=== PATIENT | male | born 1970 | race Caucasian/White ===

== ENCOUNTER 2017-07-24 18:37 | Inpatient (IN) | payer OTHER ==
[2017-07-24 20:56] VITALS: BMI 31.1
--- NOTE | 2017-07-24 21:47 | HP ---
CIWA Score - CIWA Score Nausea/Vomitin Muscle Tremors: 4-Moderate,w/Arms Extend Anxiety: 4-Mod. Anxious/Guarded Agitation: 4-Moderately Restless Paroxysmal Sweats: 4-Forehead w/Sweat Beads Orientation: 2-Disoriented Date<2 days Tacttile Disturbances: 3-Moderate Itch/Numb/Burn Auditory Disturbances: 0-None Visual Disturbances: 3-Moderate Sensitivity Headache: 3-Moderate CIWA-Ar Total Score: 30 Admission ROS BHS - HPI Chief Complaint: C/O ETOH AND BENZO DEPENDENCE. SEEKING DETOX TXMENT Allergies/Adverse Reactions: Allergies Allergy/AdvReac Type Severity Reaction Status Date / Time No Known Allergies Allergy Verified 07/24/17 21:39 History of Present Illness: 47 Y.O. MALE WITH EXTENSIVE HX/O POLY SUBSTANCE ABUSE ADMITTED TO DETOX FOR ALCOHOLISM AND XANAX DEPENDENCE. HE IS CURRENTLY ON MMTP FROM [facility] TODAY [place] 60 MG. REFERRED BY HIS GROUP HOME. DENIES ANY SIGNIFICANT PERIOD OF CLEAN TIME. Exam Limitations: Language Barrier (CZECH SPEAKING. ABLE TO MAKE NEEDS KNOWN IN [place]) - Ebola screening Have you traveled outside of the country in the last 21 days: No Have you had contact with anyone from an Ebola affected area: No Have you been sick,other than usual withdrawal symptoms: No Do you have a fever: No - Review of Systems Constitutional: Chills, Loss of Appetite, Malaise, Night Sweats EENT: reports: Nose Congestion, Dental Problems (MISSING TEETH) Respiratory: reports: No Symptoms reported Cardiac: reports: Palpitations GI: reports: Abdominal cramping : reports: Frequency Musculoskeletal: reports: Back Pain, Joint Pain Integumentary: reports: Erythema (R NFOOT GREATER THAN LEFT FOOT), Sweating Neuro: reports: Seizure Endocrine: reports: No Symptoms Reported Hematology: reports: No Symptoms Reported Psychiatric: reports: Anxious, Depressed Other Systems: Reviewed and Negative Patient History - Patient Medical History Hx Anemia: No Hx Asthma: Yes Hx Chronic Obstructive Pulmonary Disease (COPD): No Hx Cancer: No Hx Cardiac Disorders: No Hx Congestive Heart Failure: No Hx Hypertension: No Hx Hypercholesterolemia: No Hx Pacemaker: No HX Cerebrovascular Accident: No Hx Seizures: No Hx Dementia: No Hx Diabetes: No Hx Gastrointestinal Disorders: Yes (stomach ulcer) Hx Liver Disease: No Hx Genitourinary Disorders: No Hx Sexually Transmitted Disorders: No Hx Renal Disease (ESRD): No Hx Thyroid Disease: No Hx Human Immunodeficiency Virus (HIV): No Hx Hepatitis C: Yes Hx Depression: No (anxiety ) Hx Suicide Attempt: No Hx Bipolar Disorder: No Hx Schizophrenia: No Other Medical History: DENIES - Patient Surgical History Past Surgical History: Yes Hx Neurologic Surgery: No Hx Cataract Extraction: No Hx Cardiac Surgery: No Hx Lung Surgery: No Hx Breast Surgery: No Hx Breast Biopsy: No Hx Abdominal Surgery: No Hx Appendectomy: No Hx Cholecystectomy: No Hx Genitourinary Surgery: No Hx Section: No Hx Orthopedic Surgery: Yes (right shoulder in 2010) Anesthesia Reaction: No - PPD History Previous Implant?: Yes Documented Results: Negative w/proof Implanted On Prior R Admission?: Yes Date: 07/19/16 PPD to be Administered?: Yes - Smoking Cessation Smoking history: Current every day smoker Have you smoked in the past 12 months: Yes Aproximately how many cigarettes per day: 20 Cigars Per Day: 0 Hx Chewing Tobacco Use: No Initiated information on smoking cessation: Yes 'Breaking Loose' booklet given: 07/24/17 - Substance & Tx. History Hx Alcohol Use: Yes Hx Substance Use: Yes Substance Use Type: Alcohol, Cocaine, Heroin, Tranquilizers (XANAX) Hx Substance Use Treatment: Yes ([facility]) - Substances Abused ALISA/ BEER Route: Oral Frequency: Daily Amount used: 1PINT/ 8BEERS 24 OZ Age of first use: 14 Date of Last Use: 07/24/17 COCAINE Route: Injection Frequency: Daily Amount used: 10 BAGS Age of first use: 18 Date of Last Use: 07/23/17 XANAX Route: Oral Frequency: Daily Amount used: 12MG Age of first use: 27 Date of Last Use: 07/23/17 Family Disease History - Family Disease History Family Disease History: Diabetes: Grandparent, Father (htn), Other: Father Admission Physical Exam BHS - Vital Signs Vital Signs: Vital Signs - 24 hr 07/24/17 20:52 Temperature 96.9 F L Pulse Rate 80 Respiratory 18 Rate Blood Pressure 130/100 - Physical General Appearance: Yes: Disheveled, Mild Distress, Tremorous, Sweating HEENTM: Yes: EOMI, Normocephalic, DEVON, Pharynx Normal Respiratory: Yes: Chest Non-Tender, Lungs Clear, Normal Breath Sounds, No Respiratory Distress, No Accessory Muscle Use Neck: Yes: No masses,lesions,Nodules, Supple, Trachea in good position Breast: Yes: Breast Exam Deferred Cardiology: Yes: Regular Rhythm, Regular Rate, S1, S2 Abdominal: Yes: Normal Bowel Sounds, Non Tender, Protuberent Genitourinary: Yes: Within Normal Limits Back: Yes: Normal Inspection Musculoskeletal: Yes: Gait Steady Extremities: Yes: Normal Range of Motion, Non-Tender, Tremors Neurological: Yes: Alert, Motor Strength 5/5 Integumentary: Yes: Erythema (R FOOT CELLULITS. RED, WARM, SWOLLEN, INJECTION HOLLIDAY NOTED) Lymphatic: Yes: Within Normal Limits - Diagnostic (1) Alcohol dependence with uncomplicated withdrawal Current Visit: No Status: Chronic (2) Cocaine dependence Current Visit: No Status: Chronic Qualifiers: Substance use status: uncomplicated Qualified Code(s): F14.20 - Cocaine dependence, uncomplicated; F14.20 - Cocaine dependence, uncomplicated; F14.20 - Cocaine dependence, uncomplicated (3) Sedative, hypnotic or anxiolytic dependence with withdrawal, uncomplicated Current Visit: No Status: Chronic (4) Methadone maintenance therapy patient Current Visit: No Status: Chronic (5) Nicotine dependence Current Visit: No Status: Chronic Qualifiers: Nicotine product type: cigarettes Substance use status: uncomplicated Qualified Code(s): F17.210 - Nicotine dependence, cigarettes, uncomplicated; F17.210 - Nicotine dependence, cigarettes, uncomplicated (6) Asthma Current Visit: Yes Status: Chronic Qualifiers: Asthma severity: mild Asthma persistence: intermittent Asthma complication type: uncomplicated Qualified Code(s): J45.20 - Mild intermittent asthma, uncomplicated; J45.20 - Mild intermittent asthma, uncomplicated; J45.20 - Mild intermittent asthma, uncomplicated (7) GERD (gastroesophageal reflux disease) Current Visit: Yes Status: Chronic (8) Cellulitis of right foot Current Visit: Yes Status: Acute Cleared for Admission S - Detox or Rehab [facility] Level of Care: Medically Managed Detox Regimen/Protocol: Librium [facility] Breath Alcohol Content Breath Alcohol Content: 0 Urine Drug Screen - Results Drug Screen Negative: No Urine Drug Screen Results: JACKI-Cocaine, OPI-Opiates, BZO-Benzodiazepines, MTD- Methadone
[2017-07-24] MEDS ORDERED: MAG HYDROX/AL HYDROX/SIMETH 30 ML UNIT-DOSE CUP PO PRN (22:09)
[2017-07-24] MEDS ORDERED: MAGNESIUM CITRATE 300 ML BOTTLE PO PRN (22:09)
[2017-07-24] MEDS ORDERED: chlordiazePOXIDE HCL 25 MG CAPSULE PO PRN (22:09)
[2017-07-24] MEDS ORDERED: ACETAMINOPHEN 325 MG TABLET (FP) PO PRN (22:09)
[2017-07-24] MEDS ORDERED: MENTHOL/PHENOL 1 EACH UD MM PRN (22:09)
[2017-07-24] MEDS ORDERED: P-EPHED 60MG/TRIPROLIDI 2.5MG TABLET PO PRN (22:09)
[2017-07-24] MEDS ORDERED: IBUPROFEN 400 MG TABLET (FP) PO PRN (22:09)
[2017-07-24] MEDS ORDERED: hydrOXYzine PAMOATE 50 MG CAPSULE (FP) PO PRN (22:09)
[2017-07-24] MEDS ORDERED: guaiFENesin/D-METHORPHAN HB 10 ML UNIT-DOSE CUPS PO PRN (22:09)
[2017-07-24] MEDS ORDERED: diphenhydrAMINE HCL 50 MG CAPSULE PO PRN (22:09)
[2017-07-24] MEDS ORDERED: NICOTINE POLACRILEX 2 MG GUM BC PRN (22:09)
[2017-07-24] MEDS ORDERED: MAGNESIUM HYDROX 2400MG/30ML ORAL SUSPENSION 30 ML CUP PO PRN (22:09)
[2017-07-24] MEDS: AMOX TR/POT CLAV 875MG/125MG TABLETS (FP) PO SCH (23:22)
[2017-07-24] MEDS: chlordiazePOXIDE HCL 25 MG CAPSULE PO SCH (23:22)
[2017-07-25 01:17] LABS: URINE APPEARANCE TURBID; URINE BLOOD NEGATIVE (NEGATIVE); URINE COLOR YELLOW; URINE GLUCOSE (UA) NEGATIVE (NEGATIVE); URINE KETONE NEGATIVE (NEGATIVE); URINE NITRITE NEGATIVE (NEGATIVE); URINE PROTEIN NEGATIVE (NEGATIVE); URINE UROBILINOGEN 4.0 E.U/dl mg/dL (0.2-1.0)
[2017-07-25] MEDS: chlordiazePOXIDE HCL 25 MG CAPSULE PO SCH ×4 (06:00→22:46)
[2017-07-25] MEDS: AMOX TR/POT CLAV 875MG/125MG TABLETS (FP) PO SCH ×3 (07:56→20:21)
[2017-07-25] MEDS ORDERED: METHADONE HCL 10 MG TABLET PO SCH ×2 (10:30→11:45)
[2017-07-25] MEDS: NICOTINE 14 MG/24 HOURS TOPICAL PATCH TD SCH (11:12)
[2017-07-25] MEDS: PRENATAL VITAMINS W/ FOLIC ACID TABLET (FP) PO SCH (11:13)
[2017-07-25] MEDS ORDERED: METHADONE HCL 10 MG TABLET ONE (11:56)
[2017-07-25] MEDS ORDERED: METHADONE HCL 5 MG TABLET ONE (11:57)
[2017-07-25] MEDS ORDERED: METHADONE HCL 40 MG DISPERSABLE TABLET ONE (11:57)
[2017-07-25] MEDS ORDERED: METHADONE 40 MG, METHADONE 20 MG, METHADONE 5 MG PO ONE (12:00)
[2017-07-25 12:29] LABS: URINE LEUK ESTERASE Negative (NEGATIVE)
--- NOTE | 2017-07-25 15:05 | CONSULT ---
[facility] Psychiatric Consult - Data Date of interview: 07/25/17 Admission source: [facility] Identifying data: Readmission to [facility] for this 47 y/o male seeking detox treatment on for alcohol,heroin,cocaine and benzodiazepine dependence.Patient is ,a father of one,homeless (intermediate ),unemployed and reportedly deprived of any source of income. Substance Abuse History: Confirmed by patient. Smoking Cessation. Smoking history: Current every day smoker. Have you smoked in the past 12 months: Yes. Aproximately how many cigarettes per day: 20. Cigars Per Day: 0. Hx Chewing Tobacco Use: No. Initiated information on smoking cessation: Yes. 'Breaking Loose' booklet given: 07/24/17. - Substance & Tx. History. Hx Alcohol Use: Yes. Hx Substance Use: Yes. Substance Use Type: Alcohol, Cocaine, Heroin, Tranquilizers (XANAX). Hx Substance Use Treatment: Yes ([facility]). - Substances Abused. ALISA/ BEER. Route: Oral. Frequency: Daily. Amount used: 1PINT/ 8BEERS 24 OZ. Age of first use: 14. Date of Last Use: 07/24/17. COCAINE. Route: Injection. Frequency: Daily. Amount used: 10 BAGS. Age of first use: 18. Date of Last Use: 07/23/17. XANAX. Route: Oral. Frequency: Daily. Amount used: 12MG. Age of first use: 27. Date of Last Use: 07/23/17 Medical History: Medical co-morbidities : bronchial asthma,gastric ulcer, hepatitis C and past history of orthosurgery for injury to right shoulder (2009) . Psychiatric History: History of two psychiatric admissions to [facility] (2009 ) and [facility] (2013).Diagnosed with Bipolar disorder and Anxiety Disorder.Used to be prescribed seroquel and ambien.Mr Mauro reports total non- adherence to OPD care.Off psychotropic medications for several months.Currently on methadone maintenance (60 mg/day) at the [facility] program in the [place].Patient denies history of suicide attempts. Physical/Sexual Abuse/Trauma History: Patient denies. Additional Comment: Urine Drug Screen Results: JACKI-Cocaine, OPI-Opiates, BZO- Benzodiazepines, MTD-Methadone.Noted. Mental Status Exam - Mental Status Exam Alert and Oriented to: Time, Place, Person Cognitive Function: Grossly Intact Patient Appearance: Well Groomed (tattoos on forearms) Mood: Withdrawn Affect: Mood Congruent Patient Behavior: Sedated (mild sedation ; patient is able to communicate with senior grant writer in broken portuguese ;coherent in georgian), Fatigued Speech Pattern: Clear Voice Loudness: Normal Thought Process: Goal Oriented Thought Disorder: Not Present Hallucinations: Denies Suicidal Ideation: Denies Homicidal Ideation: Denies Insight/Judgement: Poor Sleep: Well Appetite: Good Muscle strength/Tone: Normal Gait/Station: Other (unsteady) Psychiatric Findings - Problem List ([place] 1, 2,3) (1) Alcohol dependence with uncomplicated withdrawal Current Visit: Yes Status: Acute (2) Opioid dependence on agonist therapy Current Visit: Yes Status: Acute (3) Cocaine dependence Current Visit: Yes Status: Acute Qualifiers: Substance use status: uncomplicated Qualified Code(s): F14.20 - Cocaine dependence, uncomplicated; F14.20 - Cocaine dependence, uncomplicated; F14.20 - Cocaine dependence, uncomplicated (4) Sedative, hypnotic or anxiolytic dependence with withdrawal, uncomplicated Current Visit: Yes Status: Acute (5) Substance induced mood disorder Current Visit: Yes Status: Acute (6) Nicotine dependence Current Visit: No Status: Chronic Qualifiers: Nicotine product type: cigarettes Substance use status: uncomplicated Qualified Code(s): F17.210 - Nicotine dependence, cigarettes, uncomplicated; F17.210 - Nicotine dependence, cigarettes, uncomplicated (7) Asthma Current Visit: Yes Status: Chronic Qualifiers: Asthma severity: mild Asthma persistence: intermittent Asthma complication type: uncomplicated Qualified Code(s): J45.20 - Mild intermittent asthma, uncomplicated; J45.20 - Mild intermittent asthma, uncomplicated; J45.20 - Mild intermittent asthma, uncomplicated (8) GERD (gastroesophageal reflux disease) Current Visit: Yes Status: Chronic - Initial Treatment Plan Initial Treatment Plan: Psychoeducation.Detoxification.Observation.
--- NOTE | 2017-07-25 15:56 | PN ---
S CIWA - CIWA Score Nausea/Vomitin Muscle Tremors: 3 Anxiety: 4-Mod. Anxious/Guarded Agitation: 1-Slight > Activity Paroxysmal Sweats: 3 Orientation: 2-Disoriented Date<2 days Tacttile Disturbances: 3-Moderate Itch/Numb/Burn Auditory Disturbances: 0-None Visual Disturbances: 2-Mild Sensitivity Headache: 2-Mild CIWA-Ar Total Score: 22 BHS Progress Note (SOAP) Subjective: Interrupted sleep, Body Aches, H/A, Sweating, Fatigue, Interrupted sleep. Objective: PT. A & O X 2 (DISORIENTED ABOUT DAY / DATE). PT. OBSERVED AMBULATING ON UNIT. NO ACUTE DISTRESS. 07/25/17 15:54 Vital Signs Temperature 97.8 F 07/25/17 14:58 Pulse Rate 69 07/25/17 14:58 Respiratory Rate 18 07/25/17 14:58 Blood Pressure 138/90 07/25/17 14:58 O2 Sat by Pulse Oximetry (%) Laboratory Tests 07/24/17 23:34 Urine Color Yellow Urine Appearance Turbid Urine pH 5.0 Ur Specific [place] >= 1.030 H Urine Protein Negative Urine Glucose (UA) Negative Urine Ketones Negative Urine Blood Negative Urine Nitrite Negative Urine Bilirubin 2.0 Urine Urobilinogen 4.0 e.u/dl Ur Leukocyte Esterase Negative UA RESULTS NOTED. CBC, CMP, AND RPR RESULTS PENDING. 07/25/17 15:55 Assessment: 07/25/17 15:56 WITHDRAWAL SYMPTOMS. Plan: CONTINUE DETOX.
--- NOTE | 2017-07-25 19:42 | EKG ---
Test Reason : Blood Pressure : / mmHG Vent. Rate : 066 BPM Atrial Rate : 066 BPM P-R Int : 120 ms QRS Dur : 086 ms QT Int : 424 ms P-R-T Axes : 033 061 036 degrees QTc Int : 444 ms [address]AL SINUS RHYTHM ST ELEVATION, CONSIDER EARLY REPOLARIZATION NO PREVIOUS ECGS AVAILABLE REPEAT EKG IF CLINICALLY INDICATED Confirmed by ROSE MARY LI MD ([id number]) on 07/25/2017 7:42:35 PM Referred By: Confirmed By:ROSE MARY LI MD
[2017-07-25] MEDS: THIAMINE HCL 100 MG TABLET (FP) PO SCH (22:46)
[2017-07-26] MEDS: LOPERAMIDE HCL 2 MG CAPSULE PO PRN ×2 (00:28→22:21)
[2017-07-26] MEDS ORDERED: METHADONE HCL 5 MG TABLET ONE (04:33)
[2017-07-26] MEDS ORDERED: METHADONE HCL 10 MG TABLET ONE (04:33)
[2017-07-26] MEDS ORDERED: METHADONE HCL 40 MG DISPERSABLE TABLET ONE (04:34)
[2017-07-26] MEDS: METHADONE 40 MG, METHADONE 20 MG, METHADONE 5 MG PO SCH (05:17)
[2017-07-26] MEDS: chlordiazePOXIDE HCL 25 MG CAPSULE PO SCH ×3 (05:17→17:33)
[2017-07-26] MEDS: AMOX TR/POT CLAV 875MG/125MG TABLETS (FP) PO SCH ×2 (07:21→17:33)
[2017-07-26] MEDS: PRENATAL VITAMINS W/ FOLIC ACID TABLET (FP) PO SCH (11:00)
[2017-07-26] MEDS: NICOTINE 14 MG/24 HOURS TOPICAL PATCH TD SCH (11:01)
--- NOTE | 2017-07-26 16:53 | PN ---
[facility] CIWA - CIWA Score Nausea/Vomitin-No Nausea/No Vomiting Muscle Tremors: 3 Anxiety: 3 Agitation: 2 Paroxysmal Sweats: 3 Orientation: 0-Oriented Tacttile Disturbances: 0-None Auditory Disturbances: 0-None Visual Disturbances: 0-None Headache: 0-None Present CIWA-Ar Total Score: 11 [facility] Progress Note (SOAP) Subjective: Anxiety,tremors,sweating,interrupted sleep,restless Objective: 07/26/17 16:52 Vital Signs - 8 hr 07/26/17 07/26/17 09:19 13:17 Temperature 97.8 F 97.3 F L Pulse Rate 70 107 H Respiratory 18 20 Rate Blood Pressure 136/99 130/91 Laboratory Last Values Urine Color Yellow 07/24/17 23:34 Urine Appearance Turbid 07/24/17 23:34 Urine pH 5.0 (5.0-8.0) 07/24/17 23:34 Ur Specific [place] >= 1.030 (1.005-1.025) H 07/24/17 23:34 Urine Protein Negative (NEGATIVE) 07/24/17 23:34 Urine Glucose (UA) Negative (NEGATIVE) 07/24/17 23:34 Urine Ketones Negative (NEGATIVE) 07/24/17 23:34 Urine Blood Negative (NEGATIVE) 07/24/17 23:34 Urine Nitrite Negative (NEGATIVE) 07/24/17 23:34 Urine Bilirubin 2.0 (NEGATIVE) 07/24/17 23:34 Urine Urobilinogen 4.0 e.u/dl mg/dL (0.2-1.0) 07/24/17 23:34 Ur Leukocyte Esterase Negative (NEGATIVE) 07/24/17 23:34 labs noted Assessment: 07/26/17 16:53 Withdrawal sx. Plan: Continue detox
[2017-07-26] MEDS: chlordiazePOXIDE 5 MG CAPSULE PO SCH (22:19)
[2017-07-26] MEDS: THIAMINE HCL 100 MG TABLET (FP) PO SCH (22:19)
[2017-07-27] MEDS ORDERED: METHADONE HCL 10 MG TABLET ONE (03:14)
[2017-07-27] MEDS ORDERED: METHADONE HCL 40 MG DISPERSABLE TABLET ONE (03:15)
[2017-07-27] MEDS ORDERED: METHADONE HCL 5 MG TABLET ONE (03:15)
[2017-07-27] MEDS: METHADONE 40 MG, METHADONE 20 MG, METHADONE 5 MG PO SCH (05:58)
[2017-07-27] MEDS: chlordiazePOXIDE 5 MG CAPSULE PO SCH ×3 (05:58→17:52)
[2017-07-27] MEDS: LOPERAMIDE HCL 2 MG CAPSULE PO PRN ×2 (05:58→14:02)
[2017-07-27] MEDS: AMOX TR/POT CLAV 875MG/125MG TABLETS (FP) PO SCH ×2 (07:10→17:52)
--- NOTE | 2017-07-27 10:02 | PN ---
BHS Progress Note (SOAP) Subjective: nausea, sweats, interrupted sleep, anxiety, tremors Objective: 07/27/17 10:01 Vital Signs - 24 hr 07/26/17 07/26/17 07/26/17 13:17 17:36 21:47 Temperature 97.3 F L 97 F L 97.5 F L Pulse Rate 107 H 66 92 H Respiratory 20 18 18 Rate Blood Pressure 130/91 117/75 125/73 07/27/17 07/27/17 07/27/17 00:52 03:30 06:19 Temperature 96.8 F L Pulse Rate 100 H Respiratory 18 18 18 Rate Blood Pressure 128/82 Laboratory Tests 07/24/17 23:34 Urine Color Yellow Urine Appearance Turbid Urine pH 5.0 Ur Specific [place] >= 1.030 H Urine Protein Negative Urine Glucose (UA) Negative Urine Ketones Negative Urine Blood Negative Urine Nitrite Negative Urine Bilirubin 2.0 Urine Urobilinogen 4.0 e.u/dl Ur Leukocyte Esterase Negative check labs Assessment: 07/27/17 10:01 withdrawal sx, labs pending Plan: cont detox, fluids, encourge ambualtion
[2017-07-27 10:43] LABS: ALBUMIN 3.1 g/dl (3.4-5.0); ALK PHOS 207 U/L (45-117); ANION GAP 7 (8-16); BILIRUBIN,TOTAL 0.3 mg/dL (0.2-1.0); CALCIUM 8.9 mg/dL (8.5-10.1); CO2 29 mmol/L (21-32); CREATININE 0.8 mg/dL (0.7-1.3); GLUCOSE,RANDOM 111 mg/dL (74-106); SGOT/AST 50 U/L (15-37); SGPT/ALT 64 U/L (12-78); TOT PROT 6.8 g/dl (6.4-8.2)
[2017-07-27] MEDS: PRENATAL VITAMINS W/ FOLIC ACID TABLET (FP) PO SCH (10:43)
[2017-07-27] MEDS: NICOTINE 14 MG/24 HOURS TOPICAL PATCH TD SCH (10:44)
[2017-07-27 10:45] LABS: MCH 31.5 pg (25.7-33.7); MCHC 33.5 g/dl (32.0-35.9); MEAN CELL VOLUME 94.1 fl (80-96); MEAN PLT VOLUME 9.6 fl (7.5-11.1); PLATELET COUNT 172 K/MM3 (134-434); RDW 13.3 % (11.9-15.9); WHITE BLOOD COUNT 4.1 K/mm3 (4.0-10.0)
[2017-07-27] MEDS: RANITIDINE HCL 150 MG TABLET (FP) PO SCH ×2 (17:52→22:06)
[2017-07-27] MEDS: chlordiazePOXIDE HCL 10 MG CAPSULE PO SCH (22:06)
[2017-07-27] MEDS: THIAMINE HCL 100 MG TABLET (FP) PO SCH (22:06)
[2017-07-28] MEDS: LOPERAMIDE HCL 2 MG CAPSULE PO PRN (01:43)
[2017-07-28] MEDS ORDERED: METHADONE HCL 10 MG TABLET ONE (05:00)
[2017-07-28] MEDS ORDERED: METHADONE HCL 5 MG TABLET ONE (05:00)
[2017-07-28] MEDS ORDERED: METHADONE HCL 40 MG DISPERSABLE TABLET ONE (05:01)
[2017-07-28] MEDS: chlordiazePOXIDE HCL 10 MG CAPSULE PO SCH ×3 (06:07→17:18)
[2017-07-28] MEDS: METHADONE 40 MG, METHADONE 20 MG, METHADONE 5 MG PO SCH (06:08)
[2017-07-28] MEDS: AMOX TR/POT CLAV 875MG/125MG TABLETS (FP) PO SCH ×2 (07:08→17:18)
[2017-07-28] MEDS: NICOTINE 14 MG/24 HOURS TOPICAL PATCH TD SCH (10:09)
[2017-07-28] MEDS: RANITIDINE HCL 150 MG TABLET (FP) PO SCH ×2 (10:09→22:10)
[2017-07-28] MEDS: PRENATAL VITAMINS W/ FOLIC ACID TABLET (FP) PO SCH (10:09)
--- NOTE | 2017-07-28 10:27 | DS ---
[facility] Detox Discharge Summary Admission Date: 07/24/17 Discharge Date: 07/28/17 - History Present History: Alcohol Dependence, Sedative Dependence Additional Comments: PT COMPLETED DETOX. ALERT O X 3. NAD. Pertinent Past History: ASTHMA HEP C - Physical Exam Results Vital Signs: Vital Signs Temperature 97.7 F 07/28/17 06:23 Pulse Rate 70 07/28/17 06:23 Respiratory Rate 18 07/28/17 06:23 Blood Pressure 123/85 07/28/17 06:23 O2 Sat by Pulse Oximetry (%) Pertinent Admission Physical Exam Findings: WITHDRAWAL SX - Treatment Hospital Course: Detox Protocol Followed, Detoxed Safely, Responded well, Discharged Condition Good - Medication Discharge Medications: Ambulatory Orders Albuterol Sulfate Inhaler - [Ventolin HFA Inhaler -] 2 inh PO Q4H PRN 07/17/16 Esomeprazole Magnesium [Nexium 24Hr] 40 mg PO DAILY 07/17/16 - Diagnosis (1) Alcohol dependence with uncomplicated withdrawal Current Visit: Yes Status: Acute (2) Sedative, hypnotic or anxiolytic dependence with withdrawal, uncomplicated Current Visit: Yes Status: Acute (3) Asthma Current Visit: Yes Status: Chronic Qualifiers: Asthma severity: mild Asthma persistence: intermittent Asthma complication type: uncomplicated Qualified Code(s): J45.20 - Mild intermittent asthma, uncomplicated; J45.20 - Mild intermittent asthma, uncomplicated; J45.20 - Mild intermittent asthma, uncomplicated (4) GERD (gastroesophageal reflux disease) Current Visit: Yes Status: Chronic Qualifiers: Esophagitis presence: esophagitis presence not specified Qualified Code(s): K21.9 - Gastro-esophageal reflux disease without esophagitis; K21.9 - Gastro-esophageal reflux disease without esophagitis; K21.9 - Gastro-esophageal reflux disease without esophagitis (5) Nicotine dependence Current Visit: Yes Status: Acute Qualifiers: Nicotine product type: cigarettes Substance use status: in withdrawal Qualified Code(s): F17.213 - Nicotine dependence, cigarettes, with withdrawal; F17.213 - Nicotine dependence, cigarettes, with withdrawal - AMA Did Patient Leave Against Medical Advice: No
--- NOTE | 2017-07-28 15:14 | PN ---
S Progress Note Note: PT IS HELD OVER TILL 07/29/17 TO ENABLE HIM GET SET UP WITH A REHAB. NONE AVAILABLE TODAY PER COUNSELOR.
[2017-07-28] MEDS: THIAMINE HCL 100 MG TABLET (FP) PO SCH (22:10)
[2017-07-29] MEDS ORDERED: METHADONE HCL 5 MG TABLET ONE (03:40)
[2017-07-29] MEDS ORDERED: METHADONE HCL 10 MG TABLET ONE (03:40)
[2017-07-29] MEDS ORDERED: METHADONE HCL 40 MG DISPERSABLE TABLET ONE (03:41)
[2017-07-29] MEDS: METHADONE 40 MG, METHADONE 20 MG, METHADONE 5 MG PO SCH (06:00)
[2017-07-29 09:42] VITALS: BP 114/85; PULSE 74; TEMP 95.5
[2017-07-29] MEDS: PRENATAL VITAMINS W/ FOLIC ACID TABLET (FP) PO SCH (10:17)
[2017-07-29] MEDS: RANITIDINE HCL 150 MG TABLET (FP) PO SCH (10:17)
[2017-07-29] MEDS: AMOX TR/POT CLAV 875MG/125MG TABLETS (FP) PO SCH (10:17)
[2017-07-29] MEDS: NICOTINE 14 MG/24 HOURS TOPICAL PATCH TD SCH (10:17)
--- NOTE | 2017-07-29 10:27 | PN ---
S Progress Note (SOAP) Subjective: PT HAS A BED TODAY IN [facility]. ALERT O X 3. NAD. PT IS LOOKING FORWARD TO GOING TO REHAB TODAY. Objective: 07/29/17 10:26 Vital Signs Temperature 95.5 F L 07/29/17 09:41 Pulse Rate 74 07/29/17 09:41 Respiratory Rate 20 07/29/17 09:41 Blood Pressure 114/85 07/29/17 09:41 O2 Sat by Pulse Oximetry (%) Laboratory Last Values WBC 4.1 K/mm3 (4.0-10.0) 07/27/17 07:30 RBC 4.51 M/mm3 (4.00-5.60) 07/27/17 07:30 Hgb 14.2 GM/dL (11.7-16.9) 07/27/17 07:30 Hct 42.5 % (35.4-49) 07/27/17 07:30 MCV 94.1 fl (80-96) 07/27/17 07:30 MCH 31.5 pg (25.7-33.7) 07/27/17 07:30 MCHC 33.5 g/dl (32.0-35.9) 07/27/17 07:30 RDW 13.3 % (11.9-15.9) 07/27/17 07:30 Plt Count 172 K/MM3 (134-434) 07/27/17 07:30 MPV 9.6 fl (7.5-11.1) 07/27/17 07:30 Sodium 137 mmol/L (136-145) 07/27/17 07:30 Potassium 4.3 mmol/L (3.5-5.1) 07/27/17 07:30 Chloride 101 mmol/L (98-107) 07/27/17 07:30 Carbon Dioxide 29 mmol/L (21-32) 07/27/17 07:30 Anion Gap 7 (8-16) L 07/27/17 07:30 BUN 8 mg/dL (7-18) D 07/27/17 07:30 Creatinine 0.8 mg/dL (0.7-1.3) 07/27/17 07:30 Creat Clearance w eGFR > 60 (>60) 07/27/17 07:30 Random Glucose 111 mg/dL (74-106) H D 07/27/17 07:30 Calcium 8.9 mg/dL (8.5-10.1) 07/27/17 07:30 Total Bilirubin 0.3 mg/dL (0.2-1.0) 07/27/17 07:30 AST 50 U/L (15-37) H 07/27/17 07:30 ALT 64 U/L (12-78) 07/27/17 07:30 Alkaline Phosphatase 207 U/L (45-117) H 07/27/17 07:30 Total Protein 6.8 g/dl (6.4-8.2) 07/27/17 07:30 Albumin 3.1 g/dl (3.4-5.0) L D 07/27/17 07:30 Urine Color Yellow 07/24/17 23:34 Urine Appearance Turbid 07/24/17 23:34 Urine pH 5.0 (5.0-8.0) 07/24/17 23:34 Ur Specific [place] >= 1.030 (1.005-1.025) H 07/24/17 23:34 Urine Protein Negative (NEGATIVE) 07/24/17 23:34 Urine Glucose (UA) Negative (NEGATIVE) 07/24/17 23:34 Urine Ketones Negative (NEGATIVE) 07/24/17 23:34 Urine Blood Negative (NEGATIVE) 07/24/17 23:34 Urine Nitrite Negative (NEGATIVE) 07/24/17 23:34 Urine Bilirubin 2.0 (NEGATIVE) 07/24/17 23:34 Urine Urobilinogen 4.0 e.u/dl mg/dL (0.2-1.0) 07/24/17 23:34 Ur Leukocyte Esterase Negative (NEGATIVE) 07/24/17 23:34 RPR Titer Nonreactive (NONREACTIVE) 07/27/17 07:30 Assessment: 07/29/17 10:26 MEDICALLY STABLE Plan: D/C TO REHAB TODAY.
== END 2017-07-29 12:04 | disposition other institution (70) | DRG 773 ==
LOC: YASAS 18:37 → Y3N 22:28
PROVIDERS: ADMIT Internal Medicine; ATTEND Internal Medicine
PROC: HZ2ZZZZ Detoxification Services for Substance Abuse Treatment (ICD-10-PCS; principal; 2017-07-24)
DX: F13.230 Sedative, hypnotic or anxiolytic dependence with withdrawal, uncomplicated (principal); F11.20 Opioid dependence, uncomplicated; F10.230 Alcohol dependence with withdrawal, uncomplicated; F14.20 Cocaine dependence, uncomplicated; F17.213 Nicotine dependence, cigarettes, with withdrawal; F19.24 Other psychoactive substance dependence with psychoactive substance-induced mood disorder; K21.9 Gastro-esophageal reflux disease without esophagitis; J45.20 Mild intermittent asthma, uncomplicated; L03.115 Cellulitis of right lower limb; Z59.0 Homelessness
CPT/HCPCS: 36415; 80053; 81003; 85027; 86593; 93005; 93010

== ENCOUNTER 2017-07-29 12:26 | Inpatient (IN) | payer OTHER ==
[2017-07-29] MEDS ORDERED: diphenhydrAMINE HCL 50 MG CAPSULE PO PRN (14:26)
[2017-07-29] MEDS ORDERED: MAGNESIUM CITRATE 300 ML BOTTLE PO PRN (14:26)
[2017-07-29] MEDS ORDERED: LOPERAMIDE HCL 2 MG CAPSULE PO PRN (14:26)
[2017-07-29] MEDS ORDERED: IBUPROFEN 400 MG TABLET (FP) PO PRN (14:26)
[2017-07-29] MEDS ORDERED: P-EPHED 60MG/TRIPROLIDI 2.5MG TABLET PO PRN (14:26)
[2017-07-29] MEDS ORDERED: MENTHOL/PHENOL 1 EACH UD MM PRN (14:26)
[2017-07-29] MEDS ORDERED: guaiFENesin/D-METHORPHAN HB 10 ML UNIT-DOSE CUPS PO PRN (14:26)
[2017-07-29] MEDS ORDERED: ACETAMINOPHEN 325 MG TABLET (FP) PO PRN (14:26)
[2017-07-29] MEDS ORDERED: MAG HYDROX/AL HYDROX/SIMETH 30 ML UNIT-DOSE CUP PO PRN (14:26)
[2017-07-29] MEDS ORDERED: MAGNESIUM HYDROX 2400MG/30ML ORAL SUSPENSION 30 ML CUP PO PRN (14:26)
[2017-07-29] MEDS ORDERED: NICOTINE POLACRILEX 2 MG GUM BUC PRN (14:48)
[2017-07-29] MEDS ORDERED: hydrOXYzine PAMOATE 50 MG CAPSULE (FP) PO PRN (14:48)
--- NOTE | 2017-07-29 15:04 | HP ---
[facility] Rehab Assess/Revision - Admission History Admitted to Rehab from: [facility] Date of Admission to Rehab: 07/29/2017 - Vital signs Vital Signs: Vital Signs Period Temp Pulse Resp BP Sys/Chen Pulse Ox Last 24 Hr 97.8 F 73 18 127/75 - Findings Detox History & Physical reviewed: Yes (Alert and oriented x 3. Transfered from detox as per protocol) Concur with findings: Yes Comments/Additional Findings: Patient has bilateral lower extremities cellulitis. He was on Augmentin 875 mg restarted for 7 days, to be given with food.
[2017-07-29] MEDS: PANTOPRAZOLE 40 MG TABLET (FP) PO SCH (15:56)
--- NOTE | 2017-07-29 15:57 | HP ---
[facility]GUY[facility] Rehab Assess/Revision - Vital signs Vital Signs: Vital Signs Period Temp Pulse Resp BP Sys/Chen Pulse Ox Last 24 Hr 97.8 F 73 18 127/75 Inpatient Rehab Admission - Initial Determination Are CD services needed?: Yes Free of communicable disease: Yes Not in need of hospitalization: Yes - Rehab Admission Criteria Comorbidities: Yes Patient is meeting Inpatient Rehab admission criteria:: Yes
[2017-07-29] MEDS: AMOX TR/POT CLAV 875MG/125MG TABLETS (FP) PO SCH (17:18)
[2017-07-29] MEDS: THIAMINE HCL 100 MG TABLET (FP) PO SCH (21:02)
[2017-07-29] MEDS: NAPROXEN 500 MG TABLET (FP) PO SCH (21:03)
[2017-07-29 23:00] LABS: HIV 1 & 2 AB NEGATIVE; HIV 1 AGp24 NEGATIVE
[2017-07-30] MEDS: AMOX TR/POT CLAV 875MG/125MG TABLETS (FP) PO SCH ×2 (07:09→17:01)
[2017-07-30] MEDS ORDERED: METHADONE HCL 40 MG DISPERSABLE TABLET PO SCH (07:15)
[2017-07-30] MEDS ORDERED: METHADONE HCL 5 MG TABLET ONE (08:27)
[2017-07-30] MEDS ORDERED: METHADONE HCL 10 MG TABLET ONE (08:27)
[2017-07-30] MEDS ORDERED: METHADONE HCL 40 MG DISPERSABLE TABLET ONE (08:28)
[2017-07-30] MEDS: METHADONE 40 MG, METHADONE 20 MG, METHADONE 5 MG PO SCH (09:01)
[2017-07-30] MEDS: NAPROXEN 500 MG TABLET (FP) PO SCH ×2 (09:03→21:03)
[2017-07-30] MEDS: PANTOPRAZOLE 40 MG TABLET (FP) PO SCH (09:03)
[2017-07-30] MEDS: PRENATAL VITAMINS W/ FOLIC ACID TABLET (FP) PO SCH (09:03)
[2017-07-30] MEDS: NICOTINE 14 MG/24 HOURS TOPICAL PATCH TD SCH (09:04)
--- NOTE | 2017-07-30 12:42 | HP ---
Psychiatrist Admission - Data Date of interview: 07/30/17 Identifying data: THis is the first 5n inpatient rehabilitation admission for this 47 year old male who is ,a father of one, homeless ( retirement), unemployed and reportedly deprived of any source of income. Medical History: Bronchial asthma,gastric ulcer,hepatitis C and past history of orthosurgery for injury to right shoulder (2009). Smokes cigaretts 1 PPD.On MMTP 65mg/daily. Psychiatric History: Patient denies history of psychiatric hospitalizations, reports he saw the psychiatrist at [facility] to address anxiety and depression, diagnosed with Bipolar and Anxiety, states was on Seroquel and was sedated, Trazodone and Bupsar 10 mg po bid, took medications 6 months ago, does not want to take Seroquel and Trazodone but Buspar. Physical/Sexual Abuse/Trauma History: Patient denies Vital Signs: Vital Signs - 24 hr 07/29/17 07/30/17 07/30/17 13:58 00:30 03:28 Temperature 97.8 F Pulse Rate 73 Respiratory 18 18 18 Rate Blood Pressure 127/75 07/30/17 06:32 Temperature 97.2 F L Pulse Rate 64 Respiratory 18 Rate Blood Pressure 124/93 Allergies/Adverse Reactions: Allergies Allergy/AdvReac Type Severity Reaction Status Date / Time No Known Allergies Allergy Verified 07/24/17 21:39 Date of last physical exam: 07/24/17 Concur with the findings of this exam: Yes - Substance Abuse/Tx History Hx Alcohol Use: Yes (8beers 24 oz, jamey 1pint vodka daily use) Hx Substance Use: Yes Substance Use Type: Cocaine (10 bags daily injecting), Heroin (4-5 bags injecting ), Tranquilizers (xanax 12 mg daily ) Hx Substance Use Treatment: Yes ([facility]) Mental Status Exam - Mental Status Exam Alert and Oriented to: Time, Place, Person Cognitive Function: Good Patient Appearance: Well Groomed Mood: Withdrawn, Anxious Affect: Mood Congruent, Blunted, Constricted Patient Behavior: Appropriate, Cooperative Speech Pattern: Clear, Appropriate Voice Loudness: Normal Thought Process: Intact, Goal Oriented Thought Disorder: Not Present Hallucinations: Denies Suicidal Ideation: Denies Homicidal Ideation: Denies Insight/Judgement: Fair Sleep: Fair Appetite: Fair Muscle strength/Tone: Normal Gait/Station: Normal Psychiatric Findings - Problem List ([place] 1, 2,3) (1) Benzodiazepine dependence Current Visit: No Status: Acute (2) Cocaine dependence Current Visit: No Status: Acute Qualifiers: Substance use status: uncomplicated Qualified Code(s): F14.20 - Cocaine dependence, uncomplicated; F14.20 - Cocaine dependence, uncomplicated; F14.20 - Cocaine dependence, uncomplicated (3) Nicotine dependence Current Visit: No Status: Acute Qualifiers: Nicotine product type: cigarettes Substance use status: in withdrawal Qualified Code(s): F17.213 - Nicotine dependence, cigarettes, with withdrawal; F17.213 - Nicotine dependence, cigarettes, with withdrawal (4) Opioid dependence on agonist therapy Current Visit: No Status: Acute (5) Anxiety disorder Current Visit: Yes Status: Acute - Initial Treatment Plan Initial Treatment Plan: Will restart Buspar 10 mg po bid, monitor progress as needed
[2017-07-30] MEDS: THIAMINE HCL 100 MG TABLET (FP) PO SCH (21:03)
[2017-07-30] MEDS: busPIRone HCL 10 MG TABLET (FP) PO SCH (21:04)
[2017-07-31] MEDS ORDERED: METHADONE HCL 10 MG TABLET ONE (03:02)
[2017-07-31] MEDS ORDERED: METHADONE HCL 5 MG TABLET ONE (03:02)
[2017-07-31] MEDS ORDERED: METHADONE HCL 40 MG DISPERSABLE TABLET ONE (03:03)
[2017-07-31] MEDS: METHADONE 40 MG, METHADONE 20 MG, METHADONE 5 MG PO SCH (06:59)
[2017-07-31] MEDS: AMOX TR/POT CLAV 875MG/125MG TABLETS (FP) PO SCH ×2 (07:11→17:30)
[2017-07-31] MEDS: busPIRone HCL 10 MG TABLET (FP) PO SCH ×2 (09:39→21:08)
[2017-07-31] MEDS: PRENATAL VITAMINS W/ FOLIC ACID TABLET (FP) PO SCH (09:39)
[2017-07-31] MEDS: NAPROXEN 500 MG TABLET (FP) PO SCH ×2 (09:39→21:08)
[2017-07-31] MEDS: PANTOPRAZOLE 40 MG TABLET (FP) PO SCH (09:39)
[2017-07-31] MEDS: NICOTINE 14 MG/24 HOURS TOPICAL PATCH TD SCH (09:40)
[2017-07-31] MEDS: THIAMINE HCL 100 MG TABLET (FP) PO SCH (21:07)
[2017-08-01] MEDS ORDERED: METHADONE HCL 10 MG TABLET ONE (03:04)
[2017-08-01] MEDS ORDERED: METHADONE HCL 5 MG TABLET ONE (03:04)
[2017-08-01] MEDS ORDERED: METHADONE HCL 40 MG DISPERSABLE TABLET ONE (03:05)
[2017-08-01] MEDS: METHADONE 40 MG, METHADONE 20 MG, METHADONE 5 MG PO SCH (06:46)
[2017-08-01] MEDS: AMOX TR/POT CLAV 875MG/125MG TABLETS (FP) PO SCH ×2 (07:02→17:15)
[2017-08-01] MEDS: PRENATAL VITAMINS W/ FOLIC ACID TABLET (FP) PO SCH (10:13)
[2017-08-01] MEDS: PANTOPRAZOLE 40 MG TABLET (FP) PO SCH (10:13)
[2017-08-01] MEDS: busPIRone HCL 10 MG TABLET (FP) PO SCH ×2 (10:13→21:05)
[2017-08-01] MEDS: NICOTINE 14 MG/24 HOURS TOPICAL PATCH TD SCH (10:13)
[2017-08-01] MEDS: NAPROXEN 500 MG TABLET (FP) PO SCH ×2 (10:13→21:05)
[2017-08-01] MEDS: THIAMINE HCL 100 MG TABLET (FP) PO SCH (21:05)
[2017-08-02] MEDS ORDERED: METHADONE HCL 5 MG TABLET ONE (03:04)
[2017-08-02] MEDS ORDERED: METHADONE HCL 10 MG TABLET ONE (03:05)
[2017-08-02] MEDS ORDERED: METHADONE HCL 40 MG DISPERSABLE TABLET ONE (03:05)
[2017-08-02] MEDS: METHADONE 40 MG, METHADONE 20 MG, METHADONE 5 MG PO SCH (06:51)
[2017-08-02] MEDS: AMOX TR/POT CLAV 875MG/125MG TABLETS (FP) PO SCH ×2 (07:07→17:39)
[2017-08-02] MEDS: PANTOPRAZOLE 40 MG TABLET (FP) PO SCH (09:54)
[2017-08-02] MEDS: NAPROXEN 500 MG TABLET (FP) PO SCH ×2 (09:54→21:02)
[2017-08-02] MEDS: PRENATAL VITAMINS W/ FOLIC ACID TABLET (FP) PO SCH (09:54)
[2017-08-02] MEDS: busPIRone HCL 10 MG TABLET (FP) PO SCH ×2 (09:54→21:02)
[2017-08-02] MEDS: NICOTINE 14 MG/24 HOURS TOPICAL PATCH TD SCH (10:05)
[2017-08-02] MEDS: THIAMINE HCL 100 MG TABLET (FP) PO SCH (21:02)
[2017-08-03] MEDS ORDERED: METHADONE HCL 40 MG DISPERSABLE TABLET ONE (03:01)
[2017-08-03] MEDS ORDERED: METHADONE HCL 5 MG TABLET ONE (03:01)
[2017-08-03] MEDS ORDERED: METHADONE HCL 10 MG TABLET ONE (03:01)
[2017-08-03] MEDS: METHADONE 40 MG, METHADONE 20 MG, METHADONE 5 MG PO SCH (06:16)
[2017-08-03] MEDS: AMOX TR/POT CLAV 875MG/125MG TABLETS (FP) PO SCH (07:04)
[2017-08-03] MEDS: NICOTINE 14 MG/24 HOURS TOPICAL PATCH TD SCH (09:35)
[2017-08-03] MEDS: NAPROXEN 500 MG TABLET (FP) PO SCH (09:35)
[2017-08-03] MEDS: PRENATAL VITAMINS W/ FOLIC ACID TABLET (FP) PO SCH (09:35)
[2017-08-03] MEDS: busPIRone HCL 10 MG TABLET (FP) PO SCH ×2 (09:35→21:05)
[2017-08-03] MEDS: PANTOPRAZOLE 40 MG TABLET (FP) PO SCH (09:35)
--- NOTE | 2017-08-03 12:10 | PN ---
S Progress Note (SOAP) Subjective: c/o continued ffoot and ankle swelling, pruritis, dry skinon feet Objective: 08/03/17 12:06 Vital Signs - 24 hr 08/03/17 08/03/17 08/03/17 00:29 03:18 06:35 Temperature 98.3 F Pulse Rate 63 Respiratory 16 16 20 Rate Blood Pressure 122/81 Laboratory Tests 07/29/17 15:00 HIV 1&2 Antibody Screen Negative HIV P24 Antigen Negative labs reviewed, normal CBC no elevated white count , no fever. erythma and pain in feet where he had injected resolved after 10 days antibiotics prescribed on admission. Assessment: 08/03/17 12:08 resolved cellulits, bilateral pedal edema, etioligy ? low ablumin from malnutirition 2/2 substqnce use. requesting diuretics and foot cream Plan: d/c antibiotics, elevate feet, extra pillow in bed, tinactin, d/c naprosyn, start low dose HCTZ monitor bp.
[2017-08-03] MEDS ORDERED: ALBUTEROL SO4 18 GM HFA INHALER IH PRN (12:48)
[2017-08-03] MEDS: TOLNAFTATE 1% CREAM 15 GM TUBE TP SCH ×2 (13:57→21:06)
[2017-08-03] MEDS: HYDROCHLOROTHIAZIDE 12.5 MG CAPSULE (FP) PO SCH (13:57)
[2017-08-03] MEDS: THIAMINE HCL 100 MG TABLET (FP) PO SCH (21:05)
[2017-08-04] MEDS ORDERED: METHADONE HCL 10 MG TABLET ONE (03:01)
[2017-08-04] MEDS ORDERED: METHADONE HCL 40 MG DISPERSABLE TABLET ONE (03:01)
[2017-08-04] MEDS ORDERED: METHADONE HCL 5 MG TABLET ONE (03:01)
[2017-08-04] MEDS: METHADONE 40 MG, METHADONE 20 MG, METHADONE 5 MG PO SCH (05:59)
[2017-08-04] MEDS: HYDROCHLOROTHIAZIDE 12.5 MG CAPSULE (FP) PO SCH (09:23)
[2017-08-04] MEDS: busPIRone HCL 10 MG TABLET (FP) PO SCH ×2 (09:24→21:01)
[2017-08-04] MEDS: PRENATAL VITAMINS W/ FOLIC ACID TABLET (FP) PO SCH (09:24)
[2017-08-04] MEDS: NICOTINE 14 MG/24 HOURS TOPICAL PATCH TD SCH (09:24)
[2017-08-04] MEDS: PANTOPRAZOLE 40 MG TABLET (FP) PO SCH (09:25)
[2017-08-04] MEDS: TOLNAFTATE 1% CREAM 15 GM TUBE TP SCH ×2 (09:25→21:02)
[2017-08-04] MEDS: THIAMINE HCL 100 MG TABLET (FP) PO SCH (21:01)
[2017-08-05] MEDS ORDERED: METHADONE HCL 5 MG TABLET ONE (06:01)
[2017-08-05] MEDS ORDERED: METHADONE HCL 10 MG TABLET ONE (06:02)
[2017-08-05] MEDS ORDERED: METHADONE HCL 40 MG DISPERSABLE TABLET ONE (06:02)
[2017-08-05] MEDS: METHADONE 40 MG, METHADONE 20 MG, METHADONE 5 MG PO SCH (06:03)
[2017-08-05] MEDS: HYDROCHLOROTHIAZIDE 12.5 MG CAPSULE (FP) PO SCH (09:53)
[2017-08-05] MEDS: PRENATAL VITAMINS W/ FOLIC ACID TABLET (FP) PO SCH (09:53)
[2017-08-05] MEDS: PANTOPRAZOLE 40 MG TABLET (FP) PO SCH (09:53)
[2017-08-05] MEDS: NICOTINE 14 MG/24 HOURS TOPICAL PATCH TD SCH (09:53)
[2017-08-05] MEDS: busPIRone HCL 10 MG TABLET (FP) PO SCH ×2 (09:53→21:04)
[2017-08-05] MEDS: TOLNAFTATE 1% CREAM 15 GM TUBE TP SCH ×2 (09:54→21:04)
[2017-08-05] MEDS: THIAMINE HCL 100 MG TABLET (FP) PO SCH (21:04)
[2017-08-06] MEDS ORDERED: METHADONE HCL 5 MG TABLET ONE (02:38)
[2017-08-06] MEDS ORDERED: METHADONE HCL 10 MG TABLET ONE (02:39)
[2017-08-06] MEDS ORDERED: METHADONE HCL 40 MG DISPERSABLE TABLET ONE (02:39)
[2017-08-06] MEDS: METHADONE 40 MG, METHADONE 20 MG, METHADONE 5 MG PO SCH (06:23)
[2017-08-06] MEDS: TOLNAFTATE 1% CREAM 15 GM TUBE TP SCH ×2 (09:22→21:07)
[2017-08-06] MEDS: HYDROCHLOROTHIAZIDE 12.5 MG CAPSULE (FP) PO SCH (09:23)
[2017-08-06] MEDS: PANTOPRAZOLE 40 MG TABLET (FP) PO SCH (09:23)
[2017-08-06] MEDS: busPIRone HCL 10 MG TABLET (FP) PO SCH ×2 (09:23→21:06)
[2017-08-06] MEDS: PRENATAL VITAMINS W/ FOLIC ACID TABLET (FP) PO SCH (09:23)
[2017-08-06] MEDS: NICOTINE 14 MG/24 HOURS TOPICAL PATCH TD SCH (09:24)
[2017-08-06] MEDS: THIAMINE HCL 100 MG TABLET (FP) PO SCH (21:06)
[2017-08-07] MEDS ORDERED: METHADONE HCL 5 MG TABLET ONE (04:02)
[2017-08-07] MEDS ORDERED: METHADONE HCL 10 MG TABLET ONE (04:02)
[2017-08-07] MEDS ORDERED: METHADONE HCL 40 MG DISPERSABLE TABLET ONE (04:03)
[2017-08-07] MEDS ORDERED: METHADONE HCL 40 MG DISPERSABLE TABLET PO SCH (06:00)
[2017-08-07] MEDS: METHADONE 40 MG, METHADONE 20 MG, METHADONE 5 MG PO SCH (06:25)
[2017-08-07] MEDS: HYDROCHLOROTHIAZIDE 12.5 MG CAPSULE (FP) PO SCH (09:53)
[2017-08-07] MEDS: busPIRone HCL 10 MG TABLET (FP) PO SCH ×2 (09:53→21:07)
[2017-08-07] MEDS: PRENATAL VITAMINS W/ FOLIC ACID TABLET (FP) PO SCH (09:53)
[2017-08-07] MEDS: NICOTINE 14 MG/24 HOURS TOPICAL PATCH TD SCH (09:54)
[2017-08-07] MEDS: TOLNAFTATE 1% CREAM 15 GM TUBE TP SCH ×2 (09:54→21:08)
[2017-08-07] MEDS: PANTOPRAZOLE 40 MG TABLET (FP) PO SCH (09:54)
[2017-08-07] MEDS: THIAMINE HCL 100 MG TABLET (FP) PO SCH (21:07)
[2017-08-08] MEDS ORDERED: METHADONE HCL 5 MG TABLET ONE (03:35)
[2017-08-08] MEDS ORDERED: METHADONE HCL 10 MG TABLET ONE (03:36)
[2017-08-08] MEDS ORDERED: METHADONE HCL 40 MG DISPERSABLE TABLET ONE (03:36)
[2017-08-08] MEDS: METHADONE 40 MG, METHADONE 20 MG, METHADONE 5 MG PO SCH (06:22)
[2017-08-08] MEDS: busPIRone HCL 10 MG TABLET (FP) PO SCH ×2 (09:33→21:07)
[2017-08-08] MEDS: PRENATAL VITAMINS W/ FOLIC ACID TABLET (FP) PO SCH (09:33)
[2017-08-08] MEDS: NICOTINE 14 MG/24 HOURS TOPICAL PATCH TD SCH (09:33)
[2017-08-08] MEDS: PANTOPRAZOLE 40 MG TABLET (FP) PO SCH (09:33)
[2017-08-08] MEDS: HYDROCHLOROTHIAZIDE 12.5 MG CAPSULE (FP) PO SCH (09:33)
[2017-08-08] MEDS: TOLNAFTATE 1% CREAM 15 GM TUBE TP SCH ×2 (09:35→21:08)
[2017-08-08] MEDS: THIAMINE HCL 100 MG TABLET (FP) PO SCH (21:07)
[2017-08-09] MEDS ORDERED: METHADONE HCL 5 MG TABLET ONE (03:33)
[2017-08-09] MEDS ORDERED: METHADONE HCL 40 MG DISPERSABLE TABLET ONE (03:34)
[2017-08-09] MEDS ORDERED: METHADONE HCL 10 MG TABLET ONE (03:34)
[2017-08-09] MEDS: METHADONE 40 MG, METHADONE 20 MG, METHADONE 5 MG PO SCH (06:14)
[2017-08-09] MEDS: NICOTINE 14 MG/24 HOURS TOPICAL PATCH TD SCH (09:56)
[2017-08-09] MEDS: busPIRone HCL 10 MG TABLET (FP) PO SCH ×2 (09:57→21:04)
[2017-08-09] MEDS: HYDROCHLOROTHIAZIDE 12.5 MG CAPSULE (FP) PO SCH (09:57)
[2017-08-09] MEDS: PRENATAL VITAMINS W/ FOLIC ACID TABLET (FP) PO SCH (09:57)
[2017-08-09] MEDS: PANTOPRAZOLE 40 MG TABLET (FP) PO SCH (09:57)
[2017-08-09] MEDS: TOLNAFTATE 1% CREAM 15 GM TUBE TP SCH ×2 (09:58→21:04)
[2017-08-09] MEDS: THIAMINE HCL 100 MG TABLET (FP) PO SCH (21:04)
[2017-08-10] MEDS ORDERED: METHADONE HCL 10 MG TABLET ONE (03:07)
[2017-08-10] MEDS ORDERED: METHADONE HCL 5 MG TABLET ONE (03:07)
[2017-08-10] MEDS ORDERED: METHADONE HCL 40 MG DISPERSABLE TABLET ONE (03:07)
[2017-08-10] MEDS: METHADONE 40 MG, METHADONE 20 MG, METHADONE 5 MG PO SCH (06:19)
[2017-08-10] MEDS: HYDROCHLOROTHIAZIDE 12.5 MG CAPSULE (FP) PO SCH (09:50)
[2017-08-10] MEDS: NICOTINE 14 MG/24 HOURS TOPICAL PATCH TD SCH (09:51)
[2017-08-10] MEDS: PRENATAL VITAMINS W/ FOLIC ACID TABLET (FP) PO SCH (09:51)
[2017-08-10] MEDS: PANTOPRAZOLE 40 MG TABLET (FP) PO SCH (09:51)
[2017-08-10] MEDS: TOLNAFTATE 1% CREAM 15 GM TUBE TP SCH ×2 (09:52→21:02)
[2017-08-10] MEDS: busPIRone HCL 10 MG TABLET (FP) PO SCH ×2 (10:46→21:01)
[2017-08-10] MEDS: THIAMINE HCL 100 MG TABLET (FP) PO SCH (21:01)
[2017-08-11] MEDS ORDERED: METHADONE HCL 5 MG TABLET ONE (03:07)
[2017-08-11] MEDS ORDERED: METHADONE HCL 40 MG DISPERSABLE TABLET ONE (03:08)
[2017-08-11] MEDS ORDERED: METHADONE HCL 10 MG TABLET ONE (03:08)
[2017-08-11] MEDS: METHADONE 40 MG, METHADONE 20 MG, METHADONE 5 MG PO SCH (06:23)
[2017-08-11] MEDS: PRENATAL VITAMINS W/ FOLIC ACID TABLET (FP) PO SCH (09:49)
[2017-08-11] MEDS: busPIRone HCL 10 MG TABLET (FP) PO SCH ×2 (09:49→21:06)
[2017-08-11] MEDS: PANTOPRAZOLE 40 MG TABLET (FP) PO SCH (09:49)
[2017-08-11] MEDS: HYDROCHLOROTHIAZIDE 12.5 MG CAPSULE (FP) PO SCH (09:49)
[2017-08-11] MEDS: NICOTINE 14 MG/24 HOURS TOPICAL PATCH TD SCH (09:49)
[2017-08-11] MEDS: TOLNAFTATE 1% CREAM 15 GM TUBE TP SCH ×2 (09:51→21:06)
[2017-08-11] MEDS: THIAMINE HCL 100 MG TABLET (FP) PO SCH (21:06)
[2017-08-12] MEDS ORDERED: METHADONE HCL 5 MG TABLET ONE (03:12)
[2017-08-12] MEDS ORDERED: METHADONE HCL 10 MG TABLET ONE (03:12)
[2017-08-12] MEDS ORDERED: METHADONE HCL 40 MG DISPERSABLE TABLET ONE (03:13)
[2017-08-12] MEDS: METHADONE 40 MG, METHADONE 20 MG, METHADONE 5 MG PO SCH (06:28)
[2017-08-12] MEDS: PRENATAL VITAMINS W/ FOLIC ACID TABLET (FP) PO SCH (09:48)
[2017-08-12] MEDS: HYDROCHLOROTHIAZIDE 12.5 MG CAPSULE (FP) PO SCH (09:48)
[2017-08-12] MEDS: PANTOPRAZOLE 40 MG TABLET (FP) PO SCH (09:48)
[2017-08-12] MEDS: NICOTINE 14 MG/24 HOURS TOPICAL PATCH TD SCH (09:50)
[2017-08-12] MEDS: TOLNAFTATE 1% CREAM 15 GM TUBE TP SCH ×2 (09:51→21:13)
[2017-08-12] MEDS: busPIRone HCL 10 MG TABLET (FP) PO SCH ×2 (10:42→21:13)
[2017-08-12] MEDS: THIAMINE HCL 100 MG TABLET (FP) PO SCH (21:13)
[2017-08-13] MEDS ORDERED: METHADONE HCL 40 MG DISPERSABLE TABLET ONE ×2 (04:13→05:50)
[2017-08-13] MEDS ORDERED: METHADONE HCL 10 MG TABLET ONE ×2 (04:14→05:49)
[2017-08-13] MEDS ORDERED: METHADONE HCL 5 MG TABLET ONE ×2 (04:15→05:49)
[2017-08-13] MEDS: METHADONE 40 MG, METHADONE 20 MG, METHADONE 5 MG PO SCH (06:04)
[2017-08-13] MEDS: busPIRone HCL 10 MG TABLET (FP) PO SCH ×2 (09:41→21:02)
[2017-08-13] MEDS: PANTOPRAZOLE 40 MG TABLET (FP) PO SCH (09:41)
[2017-08-13] MEDS: PRENATAL VITAMINS W/ FOLIC ACID TABLET (FP) PO SCH (09:41)
[2017-08-13] MEDS: NICOTINE 14 MG/24 HOURS TOPICAL PATCH TD SCH (09:42)
[2017-08-13] MEDS: HYDROCHLOROTHIAZIDE 12.5 MG CAPSULE (FP) PO SCH (09:42)
[2017-08-13] MEDS: TOLNAFTATE 1% CREAM 15 GM TUBE TP SCH ×2 (09:43→21:02)
[2017-08-13] MEDS: THIAMINE HCL 100 MG TABLET (FP) PO SCH (21:02)
[2017-08-14] MEDS ORDERED: METHADONE HCL 5 MG TABLET ONE (05:51)
[2017-08-14] MEDS ORDERED: METHADONE HCL 10 MG TABLET ONE (05:51)
[2017-08-14] MEDS ORDERED: METHADONE HCL 40 MG DISPERSABLE TABLET ONE (05:52)
[2017-08-14] MEDS: METHADONE 40 MG, METHADONE 20 MG, METHADONE 5 MG PO SCH (06:29)
[2017-08-14] MEDS: busPIRone HCL 10 MG TABLET (FP) PO SCH ×2 (09:29→21:02)
[2017-08-14] MEDS: HYDROCHLOROTHIAZIDE 12.5 MG CAPSULE (FP) PO SCH (09:30)
[2017-08-14] MEDS: NICOTINE 14 MG/24 HOURS TOPICAL PATCH TD SCH (09:30)
[2017-08-14] MEDS: PANTOPRAZOLE 40 MG TABLET (FP) PO SCH (09:30)
[2017-08-14] MEDS: PRENATAL VITAMINS W/ FOLIC ACID TABLET (FP) PO SCH (09:30)
[2017-08-14] MEDS: TOLNAFTATE 1% CREAM 15 GM TUBE TP SCH ×2 (09:31→21:03)
[2017-08-14] MEDS: THIAMINE HCL 100 MG TABLET (FP) PO SCH (21:02)
[2017-08-15] MEDS ORDERED: METHADONE HCL 5 MG TABLET ONE (06:14)
[2017-08-15] MEDS ORDERED: METHADONE HCL 10 MG TABLET ONE (06:15)
[2017-08-15] MEDS ORDERED: METHADONE HCL 40 MG DISPERSABLE TABLET ONE (06:15)
[2017-08-15] MEDS: METHADONE 40 MG, METHADONE 20 MG, METHADONE 5 MG PO SCH (06:50)
[2017-08-15] MEDS: busPIRone HCL 10 MG TABLET (FP) PO SCH ×2 (09:41→21:18)
[2017-08-15] MEDS: TOLNAFTATE 1% CREAM 15 GM TUBE TP SCH ×2 (09:41→21:19)
[2017-08-15] MEDS: PRENATAL VITAMINS W/ FOLIC ACID TABLET (FP) PO SCH (09:41)
[2017-08-15] MEDS: HYDROCHLOROTHIAZIDE 12.5 MG CAPSULE (FP) PO SCH (09:41)
[2017-08-15] MEDS: PANTOPRAZOLE 40 MG TABLET (FP) PO SCH (09:41)
[2017-08-15] MEDS: NICOTINE 14 MG/24 HOURS TOPICAL PATCH TD SCH (09:41)
[2017-08-15] MEDS: THIAMINE HCL 100 MG TABLET (FP) PO SCH (21:18)
[2017-08-16] MEDS ORDERED: METHADONE HCL 5 MG TABLET ONE (03:03)
[2017-08-16] MEDS ORDERED: METHADONE HCL 40 MG DISPERSABLE TABLET ONE (03:04)
[2017-08-16] MEDS ORDERED: METHADONE HCL 10 MG TABLET ONE (03:04)
[2017-08-16] MEDS: METHADONE 40 MG, METHADONE 20 MG, METHADONE 5 MG PO SCH (06:52)
[2017-08-16] MEDS: PRENATAL VITAMINS W/ FOLIC ACID TABLET (FP) PO SCH (09:43)
[2017-08-16] MEDS: PANTOPRAZOLE 40 MG TABLET (FP) PO SCH (09:43)
[2017-08-16] MEDS: HYDROCHLOROTHIAZIDE 12.5 MG CAPSULE (FP) PO SCH (09:43)
[2017-08-16] MEDS: busPIRone HCL 10 MG TABLET (FP) PO SCH ×2 (09:43→21:06)
[2017-08-16] MEDS: NICOTINE 14 MG/24 HOURS TOPICAL PATCH TD SCH (09:44)
[2017-08-16] MEDS: TOLNAFTATE 1% CREAM 15 GM TUBE TP SCH ×2 (10:49→21:07)
[2017-08-16] MEDS: THIAMINE HCL 100 MG TABLET (FP) PO SCH (21:06)
[2017-08-17] MEDS ORDERED: METHADONE HCL 5 MG TABLET ONE (05:14)
[2017-08-17] MEDS ORDERED: METHADONE HCL 10 MG TABLET ONE (05:14)
[2017-08-17] MEDS ORDERED: METHADONE HCL 40 MG DISPERSABLE TABLET ONE (05:15)
[2017-08-17] MEDS: METHADONE 40 MG, METHADONE 20 MG, METHADONE 5 MG PO SCH (06:25)
[2017-08-17] MEDS: NICOTINE 14 MG/24 HOURS TOPICAL PATCH TD SCH (09:49)
[2017-08-17] MEDS: HYDROCHLOROTHIAZIDE 12.5 MG CAPSULE (FP) PO SCH (09:49)
[2017-08-17] MEDS: TOLNAFTATE 1% CREAM 15 GM TUBE TP SCH ×2 (09:49→21:03)
[2017-08-17] MEDS: busPIRone HCL 10 MG TABLET (FP) PO SCH ×2 (09:49→21:02)
[2017-08-17] MEDS: PRENATAL VITAMINS W/ FOLIC ACID TABLET (FP) PO SCH (09:49)
[2017-08-17] MEDS: PANTOPRAZOLE 40 MG TABLET (FP) PO SCH (09:49)
[2017-08-17] MEDS: THIAMINE HCL 100 MG TABLET (FP) PO SCH (21:02)
[2017-08-18] MEDS ORDERED: METHADONE HCL 5 MG TABLET ONE (02:04)
[2017-08-18] MEDS ORDERED: METHADONE HCL 40 MG DISPERSABLE TABLET ONE (02:05)
[2017-08-18] MEDS ORDERED: METHADONE HCL 10 MG TABLET ONE (02:05)
[2017-08-18] MEDS: METHADONE 40 MG, METHADONE 20 MG, METHADONE 5 MG PO SCH (06:11)
[2017-08-18] MEDS: HYDROCHLOROTHIAZIDE 12.5 MG CAPSULE (FP) PO SCH (09:36)
[2017-08-18] MEDS: NICOTINE 14 MG/24 HOURS TOPICAL PATCH TD SCH (09:36)
[2017-08-18] MEDS: PRENATAL VITAMINS W/ FOLIC ACID TABLET (FP) PO SCH (09:36)
[2017-08-18] MEDS: PANTOPRAZOLE 40 MG TABLET (FP) PO SCH (09:36)
[2017-08-18] MEDS: busPIRone HCL 10 MG TABLET (FP) PO SCH ×2 (09:36→21:05)
[2017-08-18] MEDS: TOLNAFTATE 1% CREAM 15 GM TUBE TP SCH ×2 (09:37→21:05)
--- NOTE | 2017-08-18 10:26 | PN ---
Psychiatric Progress Note Vital Signs: Vital Signs Period Temp Pulse Resp BP Sys/Chen Pulse Ox Last 24 Hr 97.5 F 56 18-20 121/82 Date of Session: 08/18/17 Chief Complaint:: Discharge Note HPI: Patient addressing Cocaine and Sedative Dependence comorbid with Opoid Dependence on Agonist Therapy, Nicotine dependende and Anxiety Disorder ROS: Asthma, Hep C, PUD were medically managed Current Medications: Active Medications Generic Name Dose Route Start Last Admin Trade Name Freq PRN Reason Stop Dose Admin Acetaminophen 650 mg 07/29/17 14:26 Tylenol - PO Q4H PRN FEVER OR PAIN Al Hydroxide/Mg Hydroxide 30 ml 07/29/17 14:26 Mylanta Oral Suspension - PO Q6H PRN DYSPEPSIA Albuterol Sulfate 2 puff 08/03/17 12:48 Ventolin Hfa Inhaler - IH Q4H PRN SHORT OF BREATH/WHEEZING Buspirone HCl 10 mg 07/30/17 22:00 08/18/17 09:36 Buspar - PO 10 mg BID PARIS Administration Eucalyptus/Menthol/Phenol/Sorbitol 1 each 07/29/17 14:26 Cepastat Lozenge - MM Q4H PRN SORE THROAT Guaifenesin 10 ml 07/29/17 14:26 Robitussin Dm - PO Q6H PRN COUGH Hydrochlorothiazide 12.5 mg 08/03/17 12:45 08/18/17 09:36 Hctz - PO 12.5 mg DAILY [place] Administration Hydroxyzine Pamoate 50 mg 07/29/17 14:48 Vistaril - PO Q4H PRN FOR ITCHING Loperamide HCl 4 mg 07/29/17 14:26 Imodium - PO Q6H PRN DIARRHEA Magnesium Hydroxide 30 ml 07/29/17 14:26 Milk Of Magnesia - PO DAILY PRN CONSTIPATION Methadone HCl 40 mg/ Methadone 65 mg 08/14/17 06:00 08/18/17 06:11 HCl 20 mg/ Methadone HCl 5 mg PO 08/20/17 05:59 65 mg DAILY@0600 PARIS Administration Nicotine 14 mg 07/30/17 10:00 08/18/17 09:36 Nicoderm Patch - TD 14 mg DAILY [place] Administration Nicotine Polacrilex 2 mg 07/29/17 14:48 Nicorette Gum - BUC Q2H PRN NICOTINE REPLACEMENT RX Pantoprazole Sodium 40 mg 07/29/17 14:45 08/18/17 09:36 Protonix - PO 40 mg DAILY [place] Administration Multivit/Folic Acid/Iron 1 tab 07/30/17 10:00 08/18/17 09:36 Vitamins (Sjr) - PO 1 tab DAILY PAR[place] Administration Pseudoephedrine/Triprolidine 1 combo 07/29/17 14:26 Actifed - PO TID PRN NASAL CONGESTION Thiamine HCl 100 mg 07/29/17 22:00 08/17/17 21:02 Vitamin B1 - PO 100 mg HS PARIS Administration Tolnaftate 1 applic 08/03/17 12:45 08/18/17 09:37 Tinactin 1% Cream - TP Not Given BID PARIS Current Side Effect: No Lab tests ordered: Yes Lab tests reviewed: Yes Provider note:: Patient will complete this program on 08/19/17. 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 He responded well to Buspar 10 mg po BID. Script for 30 days supply of that medication will be electronically transmitted to [facility]. He is stable for discharge on 08/19/17 Total face to face time:: 35 Mental Status Exam - Mental Status Exam Alert and Oriented to: Time, Place, Person Cognitive Function: Fair Patient Appearance: Well Groomed Patient Behavior: Cooperative Speech Pattern: Clear Voice Loudness: Normal Thought Process: Intact Thought Disorder: Not Present Hallucinations: Denies Suicidal Ideation: Denies Homicidal Ideation: Denies Insight/Judgement: Fair Sleep: Fair Appetite: Fair Muscle strength/Tone: Normal Gait/Station: Normal Psychiatric Treatment Plan - Problem List (1) Cocaine dependence Current Visit: No Qualifiers: Substance use status: uncomplicated Qualified Code(s): F14.20 - Cocaine dependence, uncomplicated; F14.20 - Cocaine dependence, uncomplicated; F14.20 - Cocaine dependence, uncomplicated (2) Sedative hypnotic or anxiolytic dependence Current Visit: Yes (3) Opioid dependence on agonist therapy Current Visit: No (4) Nicotine dependence Current Visit: No Qualifiers: Nicotine product type: cigarettes Substance use status: in withdrawal Qualified Code(s): F17.213 - Nicotine dependence, cigarettes, with withdrawal; F17.213 - Nicotine dependence, cigarettes, with withdrawal (5) Anxiety disorder Current Visit: Yes (6) Asthma Current Visit: No Qualifiers: Asthma severity: mild Asthma persistence: intermittent Asthma complication type: uncomplicated Qualified Code(s): J45.20 - Mild intermittent asthma, uncomplicated; J45.20 - Mild intermittent asthma, uncomplicated; J45.20 - Mild intermittent asthma, uncomplicated (7) GERD (gastroesophageal reflux disease) Current Visit: No Qualifiers: Esophagitis presence: esophagitis presence not specified Qualified Code(s): K21.9 - Gastro-esophageal reflux disease without esophagitis; K21.9 - Gastro-esophageal reflux disease without esophagitis; K21.9 - Gastro-esophageal reflux disease without esophagitis Initial treatment plan: Patient will be discharged tomorrow and refered to [facility] for custodial treatment
[2017-08-18] MEDS: THIAMINE HCL 100 MG TABLET (FP) PO SCH (21:05)
[2017-08-19] MEDS ORDERED: METHADONE HCL 10 MG TABLET ONE (03:02)
[2017-08-19] MEDS ORDERED: METHADONE HCL 5 MG TABLET ONE (03:02)
[2017-08-19] MEDS ORDERED: METHADONE HCL 40 MG DISPERSABLE TABLET ONE (03:02)
[2017-08-19] MEDS: METHADONE 40 MG, METHADONE 20 MG, METHADONE 5 MG PO SCH (06:28)
[2017-08-19 06:45] VITALS: BP 112/86; PULSE 62; TEMP 97.8
[2017-08-19] MEDS: PANTOPRAZOLE 40 MG TABLET (FP) PO SCH (09:56)
[2017-08-19] MEDS: HYDROCHLOROTHIAZIDE 12.5 MG CAPSULE (FP) PO SCH (09:56)
[2017-08-19] MEDS: busPIRone HCL 10 MG TABLET (FP) PO SCH (09:56)
[2017-08-19] MEDS: PRENATAL VITAMINS W/ FOLIC ACID TABLET (FP) PO SCH (09:56)
[2017-08-19] MEDS: TOLNAFTATE 1% CREAM 15 GM TUBE TP SCH (09:57)
[2017-08-19] MEDS: NICOTINE 14 MG/24 HOURS TOPICAL PATCH TD SCH (09:57)
== END 2017-08-19 10:30 | disposition home or self-care (01) | DRG 772 ==
LOC: YASAS 12:26 → Y5N 12:28
PROVIDERS: ADMIT Psychiatry & Neurology Psychiatry; ATTEND Psychiatry & Neurology Psychiatry
PROC: HZ42ZZZ Group Counseling for Substance Abuse Treatment, Cognitive-Behavioral (ICD-10-PCS; principal; 2017-07-29)
DX: F13.20 Sedative, hypnotic or anxiolytic dependence, uncomplicated (principal); F11.20 Opioid dependence, uncomplicated; F14.20 Cocaine dependence, uncomplicated; F17.213 Nicotine dependence, cigarettes, with withdrawal; F41.9 Anxiety disorder, unspecified; J45.20 Mild intermittent asthma, uncomplicated; K21.9 Gastro-esophageal reflux disease without esophagitis; Z59.0 Homelessness
CPT/HCPCS: 36415; 87389